=== PATIENT | female | born 1945 | race Caucasian/White ===

== ENCOUNTER → 2017-02-25 | Outpatient (CLI) | payer MEDICARE ==
--- NOTE | 2017-02-25 08:30 | MM ---
Reason for exam: follow-up at short interval from prior study. Last mammogram was performed 7 months ago. History: Patient is postmenopausal and has history of high-risk lesion on a previous biopsy at age 66. Family history of breast cancer in maternal aunt. Benign MG stereo VAD BX LT of the left breast, August 13, 2016. Benign MG stereo VAD BX LT of the left breast, February 09, 2016. Left Breast Aspiration of the left breast, March 03, 2013. High risk right breast needle localzation of the right breast, February 11, 2012. High risk right mammotome panel of the right breast, January 28, 2012. Cyst aspiration of the right breast, December 19, 2000. Took progesterone for 5 years. Physical Findings: Nurse did not find any significant physical abnormalities on exam. MG 3D Diag Mammo W/Cad ANEL Bilateral CC and MLO view(s) were taken. Prior study comparison: August 02, 2016, left breast MG 3d diag mammo w/cad LT. January 30, 2016, left breast MG work up mamm w CAD LT. There are scattered fibroglandular densities. Previous mammotome biopsy in the left breast x 2. No significant new findings when compared with previous films. These results were verbally communicated with the patient and result sheet given to the patient on 02/25/17. ASSESSMENT: Benign, BI-RAD 2 RECOMMENDATION: Routine screening mammogram of both breasts in 1 year.
== END | disposition home or self-care (01) ==
LOC: RADMAMWWP 07:21
PROVIDERS: ATTEND Surgery
DX: R92.8 Other abnormal and inconclusive findings on diagnostic imaging of breast (principal)
CPT/HCPCS: G0204; G0279

== ENCOUNTER → 2017-03-25 | Outpatient (CLI) | payer MEDICARE ==
--- NOTE | 2017-03-25 13:08 | BD ---
EXAMINATION TYPE: MG DEXA axial skeleton. DATE OF EXAM: 03/25/2017 10:59 AM COMPARISON: 01.07.2014 DEXA bone scan CLINICAL HISTORY: M19.90 UNSPECIFIED OSTEOARTHRITIS, Height: 62 Weight: 178 FRAX RISK QUESTIONS: Alcohol (3 or more units per day): NO Family History (Parent hip fracture): NO Glucocorticoids (More than 3mos): NO (Ex: prednisone, prednisolone, methylprednisolone, dexamethasone, and hydrocortisone). History of Fracture in Adulthood: NO Secondary Osteoporosis: NO 1. Type 1 Diabetes: NO 2. Hyperthyroidism: NO 3. Menopause before 45: YES 4. Malnutrition: NO 5. Chronic liver disease: NO Rheumatoid Arthritis: NO Current Tobacco Use: NO RISK FACTORS HISTORY OF: Other Fractures since Age 51: BOTH ANKLES When: > 51 YRS OLD Family History of Osteoporosis: YES, HER MATERNAL AUNT Drink Alcohol: RARELY Active: YES Diet low in dairy products/other sources of calcium: NO Postmenopausal woman: MID 40'S Lost more than 2 inches in height since high school: NO Adrenal Insufficiency: NO MEDICATIONS: Prednisone or other steroids: STEROIDS ORALLY ONLY WITH ILLNESS Additional Medications: BP MEDS, Additional History: RT TOTAL KNEE REPLACEMENT EXAM MEASUREMENTS: Bone mineral densitometry was performed using the [employer]. Bone mineral density as measured about the Lumbar spine is: ----- L1-L4(G/cm2): 1.426 T Score Values are as follows: ----- L1: 1.2 ----- L2: 2.4 ----- L3: 2.8 ----- L4: 1.6 ----- L1-L4: 2.1 Bone mineral density has: Decreased -1.5% since study of: 01.03.2014 Bone mineral density about the R hip (g/cm2): 0.748 Bone mineral density about the L hip (g/cm2): 0.828 T Score values are as follows: -----R Neck: -1.7 -----L Neck: -0.8 -----R Intertrochanter: -2.5 -----L Intertrochanter: -1.8 Bone mineral density has: Decreased -13.8% since study of: 01.07.2014 FRAX %'S: 15.7% CHANCE OF MAJOR OSTEOPOROTIC FX AND 2.4% FOR A HIP FX.....PROBABILITY OF FX IN 10 YRS TIME IMPRESSION: Osteopenia (T Score between -2.5 and -1 as noted by T score values overall in the bilateral hips. Bon e density is diminished from prior exam particularly at hip level. There is now slightly increased r isk of fracture and the patient may be considered for treatment. Re-Screen 1-2 years. NOTE: T-SCORE=SD OF THE YOUNG ADULT MEAN.
== END | disposition home or self-care (01) ==
LOC: RADBDWWP 10:24
PROVIDERS: ATTEND Family Medicine
DX: M85.80 Other specified disorders of bone density and structure, unspecified site (principal)
CPT/HCPCS: 77080

== ENCOUNTER → 2017-03-25 | Outpatient (CLI) | payer MEDICARE ==
--- NOTE | 2017-03-25 14:30 | XR ---
EXAMINATION TYPE: XR Hip Bilateral Complete DATE OF EXAM: 03/25/2017 11:27 AM CLINICAL HISTORY: Bilateral hip pain per order. Arthritic pain per patient. TECHNIQUE: AP and frogleg views of the bilateral hips are obtained. COMPARISON: None. FINDINGS: Osseous structures are demineralized which is noted to lower radiographic sensitivity. The re is no acute fracture/dislocation evident in hilar hip. The joint space in the bilateral hips appe ars within normal limits. There is spurring at greater trochanter levels bilaterally, right greater t mckeon left The overlying soft tissue appears unremarkable bilaterally. IMPRESSION: There is greater trochanteric spurring bilaterally, right greater than left.
--- NOTE | 2017-03-25 14:33 | XR ---
EXAMINATION TYPE: XR lumbosacral spine min 4V DATE OF EXAM: 03/25/2017 11:27 AM CLINICAL HISTORY: Arthritic low back pain for a few weeks. TECHNIQUE: Frontal, lateral, and oblique images of the lumbar spine are obtained. COMPARISON: None FINDINGS: There are 6 lumbar type vertebral bodies identified. The lumbar spine shows grade 1 anter olisthesis of L5 on L6 and more prominent grade 1 retrolisthesis of L2 on L3 and L3 on L4. Vertebral body heights are within normal limits. There is moderate disc space narrowing and moderate to severe spurring at L1-L2 level and L2-L3 level. There is moderate to severe disc space narrowing L3-L4 level . There is moderate disc space narrowing at L6 S1 level. Multilevel facet arthropathy most pronounced in the mid to lower lumbar spine is present. The oblique images appear within normal limits. Cholec ystectomy clips are seen in the overlying soft tissue on lateral view. Some ill-defined calcification epigastric region is of uncertain etiology, not seen on frontal view. IMPRESSION: Multilevel spondylolisthesis and degenerative changes as detailed above.
== END | disposition home or self-care (01) ==
LOC: RADXRMAIN 11:03
PROVIDERS: ATTEND Family Medicine
DX: M43.16 Spondylolisthesis, lumbar region (principal); M47.816 Spondylosis without myelopathy or radiculopathy, lumbar region; M76.891 Other specified enthesopathies of right lower limb, excluding foot; M76.892 Other specified enthesopathies of left lower limb, excluding foot
CPT/HCPCS: 72110; 73521; 77080

== ENCOUNTER → 2017-05-31 | Outpatient (CLI) | payer MEDICARE ==
[2017-05-31 08:45] LABS: Blood Urea Nitrogen 19 mg/dL (7-17); Non-African American GFR(MDRD) 55 (>60 ml/min/1.73 sqM)
--- NOTE | 2017-05-31 12:25 | CT ---
EXAMINATION TYPE: CT abdomen pelvis wo/w con DATE OF EXAM: 05/31/2017 COMPARISON: NONE INDICATION: Enlarged lymph nodes DLP: 1563.40 mGycm, Automated exposure control for dose reduction was used. CONTRAST: 100 ml mL of Omnipaque 300. Study performed with Oral Contrast TECHNIQUE: Axial images were obtained from above the diaphragm to the pubic rami in the axial plane a t 5 mm thick sections. Reconstructed images are reviewed on the computer in the coronal plane. FINDINGS: Limited CT sections are obtained the lung bases. The lung bases are clear. CT ABDOMEN: Liver: Normal Spleen: Normal Pancreas: Normal Adrenal glands: The adrenal glands are normal. Gallbladder: Surgically absent Kidneys: No masses are evident. No hydronephrosis is present. There is a hypodensity within the pos terior mid left kidney a complex cyst may be present measuring 1.2 cm. Series 6 image 43. Tiny cortic al renal cysts on the right mid kidney. Extrarenal pelvis is present on the right. There is a small c yst on the inferior pole right kidney measuring 0.9 cm. Delayed images were obtained through the [employer] neys. Aorta: Vascular calcification is within the aorta. Inferior vena cava: Normal. Lymphadenopathy: There are enlarged periaortic lymph nodes at the level of the renal arteries. The la rgest measures 2.8 cm AP with a 1.4 cm lymph node anterior. Smaller periaortic and retrocaval lymph n odes are present. There is periaortic soft tissue thickening with adjacent stranding in the retroperi toneal region. This extends into the left iliac chain region towards the left inguinal region. Enlarg ed confluent adenopathy appears to be in the left inguinal region measuring 3.5 x 4.2 cm. Smaller enh ancing lymphadenopathy appears to be in the right inguinal region. There is an enlarged retrocaval ly mph node measuring 1.[address] PELVIS: Loops of bowel within the abdomen and pelvis are normal. There are loops of bowel which are incom pletely distended or lack oral contrast limiting their evaluation. Appendix: Normal as visualized. Urinary bladder: Decompressed with limited evaluation Genitourinary structures: Uterus appears normal. Adnexal regions are clear. Minimal fluid posterior t o the uterus may be present. Osseous structures: No suspicious lytic or sclerotic lesions. Punctate sclerotic areas are within the femoral heads compatible with bone islands. Facet degenerative change and hypertrophy is present wit hin the lower lumbar spine. IMPRESSIONS: 1. Matted adenopathy enlarged adenopathy extending from the renal artery and vein level through the iliac chain region on the left with inguinal adenopathy most notably on the left. Additional adenopat hy which appears suspicious although not as enlarged as at the right inguinal region, retrocaval padilla on and portal region. Differential diagnosis should include but is not limited to, lymphoma. Addition al workup is recommended.
== END ==
LOC: RADCTMAIN 08:01
PROVIDERS: ATTEND Family Medicine
DX: R59.9 Enlarged lymph nodes, unspecified (principal)
CPT/HCPCS: 82565; 84520; 74178; 36415; Q9967

== ENCOUNTER → 2017-10-07 | Outpatient (CLI) | payer MEDICARE ==
--- NOTE | 2017-10-07 15:41 | CT ---
EXAMINATION TYPE: CT ChestAbdPelvis wo con DATE OF EXAM: 10/07/2017 COMPARISON: 05/31/2017 HISTORY: Lymphadenopathy CT DLP: 736.9 mGycm. Automated Exposure Control for Dose Reduction was Utilized. TECHNIQUE: CT scan of the thorax, abdomen and pelvis is performed without IV contrast. FINDINGS: LUNGS: PET/CT groundglass opacities are seen within the anterior right upper lobe such as on series 4 image 23 and lingula such as on series 4 image 26 and in a perifissural distribution as well as in t he dependent lower lungs. More focal area seen within the posterior basilar segment of the right lowe r lobe measuring rThe 1.5 cm. Pleural parenchymal scarring is noted within the left lung base. Findin gs are favored to represent multifocal subsegmental atelectasis although infectious or inflammatory e tiologies are also possible. There is no pulmonary nodule or mass is identified. There is no pleural effusion or pneumothorax seen . The tracheobronchial tree is patent. MEDIASTINUM: Mediastinal adenopathy and supraclavicular adenopathy are also seen with the largest sup raclavicular node on the left measuring 1.1 cm in short axis and paratracheal lymph nodes measure up to 1.2 cm in short axis. Subcarinal adenopathy is also seen measuring up to 1.6 cm in short axis. Hil ar adenopathy is difficult to evaluate without intravenous contrast. No pericardial effusion is seen . OTHER: Axillary adenopathy is greater on the left than right with the largest lymph nodes measuring 1 .3 cm in short axis and 1.8 cm in short axis. LIVER/GB: Unenhanced liver is of normal morphology. Gallbladder is surgically absent. PANCREAS: No significant abnormality is seen. SPLEEN: The spleen is nonenlarged measuring 10.8 cm in craniocaudal dimension. ADRENALS: No significant abnormality is seen. KIDNEYS: Exophytic 1.1 cm right lower pole renal cyst is present. Otherwise the unenhanced kidneys ar e unremarkable. The previously seen complex left renal lesion on the exam of 05/31/2017 is not well-de fined on today's examination without intravenous contrast. BOWEL: There is a small hiatal hernia GENITAL ORGANS: No gross abnormality seen. LYMPH NODES: Extensive adenopathy is seen throughout the abdomen and pelvis with the largest lymph no josé luis in the superficial inguinal region on the left measuring up to 5.6 x 3.5 cm 4.6 x 3.3 cm. Left pe lvic sidewall adenopathy represents confluence of internal and external iliac chain lymph nodes and m easures 4.2 x 10.1 cm in transverse by anterior posterior dimension this is enlarged from the prior a s it previously measured approximately 3.4 x 9.6 cm. Extensive periaortic and central mesenteric yris opathy is also seen, again enlarged from the prior with a conglomeration of periaortic lymph nodes on series 3 image 71 measuring 5.3 x 2.2 cm and previously measuring 4.8 x 2.0 cm. Peripancreatic and p ortacaval adenopathy is also present. OSSEOUS STRUCTURES: Multilevel degenerative changes of the thoracolumbar spine are moderate in degree with mild retrolisthesis of L1-L2 and L2 on L3. Probable bone islands are seen a sclerotic foci with in the femurs. OTHER: Abdominal aorta is of normal course and caliber with mild calcific atheromatous changes. IMPRESSION: Adenopathy within the axilla, left greater than right, supraclavicular region, mediastinu m, peripancreatic, Central mesenteric, periaortic, left pelvic sidewall, and superficial inguinal reg ions with the largest nodes in the left superficial inguinal region. In comparison to the prior exam of 05/31/2017 there is increasing size of all of the abdominal pelvic lymph nodes. Again lymphoma halle uld be a primary diagnostic consideration. The superficial left inguinal lymph nodes are amenable to percutaneous biopsy if clinically warranted. No splenic enlargement or current evidence of visceral i nvolvement in this unenhanced CT.
== END ==
LOC: RADCTMAIN 08:31
PROVIDERS: ATTEND Internal Medicine Hematology & Oncology
DX: R59.0 Localized enlarged lymph nodes (principal)
CPT/HCPCS: 36415; 71250; 74176; 82565; 84520

== ENCOUNTER → 2017-10-16 | Outpatient (CLI) | payer MEDICARE ==
--- NOTE | 2017-10-16 14:19 | US ---
EXAMINATION TYPE: US kidneys/renal and bladder DATE OF EXAM: 10/16/2017 COMPARISON: CT chest abdomen and pelvis October 07, 2017. CT abdomen May 31, 2017 CLINICAL HISTORY: N13.[address], known right renal cyst EXAM MEASUREMENTS: Right Kidney: 7.4 x 3.8 x 4.4 cm Left Kidney: 8.7 x4.1 x 4.7 cm Right Kidney: smaller in size,1.5cm inferior exophytic cyst seen Left Kidney: smaller in size, possible mild renal fullness, no obvious hydronephrosis Bladder: wnl Bilateral Jets seen: no Exam is suboptimal secondary to patient's body habitus. There is no evidence for hydronephrosis at th is point in time. No nephrolithiasis is seen. A 1.1 cm exophytic simple appearing cyst lower pole le pk right kidney is redemonstrated not significantly changed from recent CTs. The urinary bladder is anechoic. Bilateral ureteral jets are not seen. IMPRESSION: No hydronephrosis is evident bilaterally. No significant change from prior CTs.
== END | disposition home or self-care (01) ==
LOC: RADUSWWP 13:13
PROVIDERS: ATTEND Internal Medicine Hematology & Oncology
DX: N13.30 Unspecified hydronephrosis (principal)
CPT/HCPCS: 76770

== ENCOUNTER → 2018-01-01 | Outpatient (CLI) | payer MEDICARE ==
[2018-01-01 10:57] LABS: Blood Urea Nitrogen 17 mg/dL (7-17)
--- NOTE | 2018-01-01 13:54 | CT ---
EXAMINATION TYPE: CT ChestAbdPelvis w con DATE OF EXAM: 01/01/2018 COMPARISON: CT Chest Abdomen Pelvis With October 07, [address] abdomen and pelvis study May 31, 2017 HISTORY: Non-Hodgkin's Lymphoma progress study after chemotherapy beginning in October. Recently nelia gnosed in June 2017. CT DLP: 2019 mGycm. Automated Exposure Control for Dose Reduction was Utilized. CONTRAST: CT scan of the thorax, abdomen and pelvis is performed with oral and with IV Contrast, patient inject ed with 100 ml mL of Omnipaque 300. FINDINGS: LUNGS: There is stable bibasilar in the anterior right middle lobe linear scarring. There is no suspi cious new parenchymal nodule or mass. No pleural effusion or pneumothorax is seen. Tracheobronchial t ree is patent. MEDIASTINUM: There are no greater than 1 cm hilar or mediastinal lymph nodes. No cardiomegaly or pe ricardial effusion is seen. OTHER: No suspicious axillary adenopathy is seen on current study with particular attention to left a xilla. LIVER/GB: Cholecystectomy clips are redemonstrated. PANCREAS: Stable calcification posterior to the splenic vein SMV confluence axial image 55. No suspic ious adenopathy remains present at this level. SPLEEN: No significant abnormality is seen. ADRENALS: No significant abnormality is seen. KIDNEYS: Subcentimeter low dense lesion lower pole level left kidney series 7 image 42 is too small t o further characterize but presumed benign. BOWEL: Oral contrast does not reach colonic level. There is no suspicious small or large bowel dilata tion. Normal-appearing appendix is seen from cecum. GENITAL ORGANS: No gross abnormality seen. LYMPH NODES: There is mild to moderate haziness or mesenteric fat stranding through the mid to lower abdomen extending to upper pelvis. Left groin adenopathy is redemonstrated but improved measuring 2.6 x 1.2 cm on axial image 115 versus 5.6 x 3.5 cm most recent study axial image 115. Left inferior groin lymph node is redemonstrated imp roved measuring 1.8 x 1.2 cm axial image 124 versus 4.6 x 3.3 cm on axial image 125. Confluent left i liac chain adenopathy near axial image 102 is improved, there is some encasement of iliac vessels red emonstrated. There is abnormal presacral confluent adenopathy redemonstrated near axial image 89 impr mike from prior difficult to accurately measure. Lower retroperitoneal adenopathy is improved also co nfluent encasing aorta axial image 78 versus prior study image 82, abnormal adenopathy extends to lev el of renal vessels with improvement identified. OSSEOUS STRUCTURES: Moderate to severe multilevel spurring throughout the thoracolumbar spine is pres ent. There is grade 1 retrolisthesis of L2 on L3 and L1 on L2. There is multilevel facet arthropathy in the lumbar spine. OTHER: No significant additional abnormality is seen. IMPRESSION: Positive response to treatment with improving adenopathy throughout the thorax abdomen an d pelvis noted as detailed above.
== END | disposition home or self-care (01) ==
LOC: RADCTMAIN 10:04
PROVIDERS: ATTEND Internal Medicine Hematology & Oncology
DX: C82.08 Follicular lymphoma grade I, lymph nodes of multiple sites (principal); Z88.0 Allergy status to penicillin; Z88.1 Allergy status to other antibiotic agents
CPT/HCPCS: 82565; 84520; 71260; 74177; 36415; Q9967

== ENCOUNTER → 2018-04-01 | Outpatient (CLI) | payer MEDICARE ==
--- NOTE | 2018-04-03 11:12 | MM ---
Reason for exam: screening (asymptomatic). Last mammogram was performed 1 year and 1 month ago. History: Patient is postmenopausal and has history of high-risk lesion on a previous biopsy at age 66. Family history of breast cancer in maternal aunt. Benign MG stereo VAD BX LT of the left breast, August 13, 2016. Benign MG stereo VAD BX LT of the left breast, February 09, 2016. Left Breast Aspiration of the left breast, March 03, 2013. High risk right breast needle localzation of the right breast, February 11, 2012. High risk right mammotome panel of the right breast, January 28, 2012. Cyst aspiration of the right breast, December 19, 2000. Took progesterone for 5 years. Physical Findings: A clinical breast exam by your physician is recommended on an annual basis and results should be correlated with mammographic findings. MG 3D Screening Mammo W/Cad Bilateral CC and MLO view(s) were taken. Prior study comparison: February 25, 2017, bilateral MG 3d diag mammo w/cad ANEL. August 02, 2016, left breast MG 3d diag mammo w/cad LT. There are scattered fibroglandular densities. Previous mammotome biopsy in the left breast. No significant changes when compared with prior studies. ASSESSMENT: Benign, BI-RAD 2 RECOMMENDATION: Routine screening mammogram of both breasts in 1 year.
== END ==
LOC: RADMAMWWP 07:48
PROVIDERS: ATTEND Family Medicine
DX: Z12.31 Encounter for screening mammogram for malignant neoplasm of breast (principal)
CPT/HCPCS: 77063; 77067

== ENCOUNTER → 2018-04-22 | Outpatient (CLI) | payer MEDICARE ==
--- NOTE | 2018-04-22 15:47 | CT ---
EXAMINATION TYPE: CT ChestAbdPelvis w con DATE OF EXAM: 04/22/2018 COMPARISON: 01/01/2018 HISTORY: 72-year-old female f/u lymphoma, observation for metastases. TECHNIQUE: Contiguous axial scanning of the chest, abdomen, and pelvis performed with IV Contrast, pa tient injected with 100 mL of Isovue 300. Delayed images through the kidneys were obtained. Coronal/s agittal reconstructions performed. CT DLP: 1160.9 mGycm Automated exposure control for dose reduction was used. FINDINGS: Chest: Heart upper limits of normal in size without pericardial effusion. Coronary vessel calcifications are present and are a marker for coronary artery disease. Aorta shows mild atherosclerotic calcifications with conventional arch vessel branching anatomy. No recurrent thoracic lymphadenopathy. Evaluation of the lungs show some strandy atelectasis at the right middle lobe and inferior lingula a s well as both posterior lung bases. No consolidation or pleural effusion. ABDOMEN: Small hiatal hernia. No focal liver lesion. Portal venous system is patent. No biliary ductal dilatat ion. Cholecystectomy clips. Adrenal glands, left kidney, spleen, and pancreas appear within normal limits. Subcentimeter exophytic hypodensity lateral lower pole right kidney too small fractured CT characteri zation, unchanged, likely cyst. No dilated small bowel, free fluid, or free air. There has been progressive improvement now with only mild luis mesentery. Oral contrast progressed to the upper ascending colon. There is scattered moderate stool in the trans verse colon with descending and proximal sigmoid diverticulosis. No pericolonic inflammatory change. Left para-aortic lymph nodes above the level of the renal arteries measure 9 mm versus 1.0 cm, previo usly. Confluent left para-aortic lymph nodes below the level of the renal arteries measures 2.3 x 1.7 cm versus 3.5 x 1.5 cm, previously. Additional ill-defined abnormal soft tissue in the retroperitone um to the level of the bifurcation is also decreased. Along the left side of the bifurcation, soft ti ssue measures 3.4 x 2.1 cm versus 3.8 x 2.9 cm, previously. Soft tissue encasement along the left internal and obturator chain persists without significant platt e. Soft tissue thickening along the left external iliac chain decreased now measuring 9 mm versus 1.2 cm, previously. Left inguinal lymph nodes show further improvement measuring 8 mm short axis versus 1.2 cm, previousl y. Pelvis: Bladder urine. Uterus and ovaries are visualized. No abnormal fluid collection in the pelvis. Pelvic lymph nodes as described above. Bones: Mild degenerative changes of the hips. Degenerative changes at the SI joints. Degenerative changes th roughout the spine with grade 1 retrolisthesis at L1-L2 and L2-L3 and grade 1 anterolisthesis at L4-L 5. No osseous destructive process. Endplate spondylosis mid to lower thoracic spine. IMPRESSION: 1. RETROPERITONEAL LYMPH NODES AND ABNORMAL THICKENED SOFT TISSUE WHICH TRACKS DOWN THE LEFT ILIAC CH AIN SHOWS FURTHER IMPROVEMENT COMPARED TO 01/01/2018. 2. RESIDUAL SOFT TISSUE REMAINS (FOR EXAMPLE, TO THE LEFT OF THE AORTIC BIFURCATION MEASURES 3.4 X 2. 1 CM VERSUS 3.8 X 2.9 CM, PREVIOUSLY. THICKENING ALONG THE LEFT EXTERNAL ILIAC CHAIN MEASURES 9 MM VE RSUS 1.2 CM, PREVIOUSLY. LEFT INGUINAL LYMPH NODES HAVE FURTHER DECREASED IN SIZE NOW AT 8 MM VERSUS 1.2 CM, PREVIOUSLY). 3. LEFT COLONIC DIVERTICULOSIS AND SMALL HIATAL HERNIA.
== END | disposition home or self-care (01) ==
LOC: RADCTMAIN 11:53
PROVIDERS: ATTEND Internal Medicine Hematology & Oncology
DX: C82.08 Follicular lymphoma grade I, lymph nodes of multiple sites (principal); K44.9 Diaphragmatic hernia without obstruction or gangrene; K57.30 Diverticulosis of large intestine without perforation or abscess without bleeding
CPT/HCPCS: 82565; 84520; 71260; 74177; 36415; Q9967

== ENCOUNTER → 2018-05-21 | Outpatient (CLI) | payer MEDICARE ==
--- NOTE | 2018-05-21 11:49 | XR ---
EXAMINATION TYPE: XR knee complete RT DATE OF EXAM: 05/21/2018 COMPARISON: 12/14/2015 HISTORY: Pain, fall TECHNIQUE: 3 views right knee FINDINGS: No acute fractures or dislocations are evident. Soft tissues appear within normal limits. V apollo subtle small joint effusion is not excluded. Distal tibial femoral components from a knee prosthesis are evident. No osseous changes are evident f rom the comparison study IMPRESSION: 1. No acute osseous abnormality evident. 2. Subtle joint effusion may be present.
== END | disposition home or self-care (01) ==
LOC: RADXRMAIN 09:27
PROVIDERS: ATTEND Family Medicine
DX: M25.561 Pain in right knee (principal)

== ENCOUNTER → 2018-11-06 | Outpatient (CLI) | payer MEDICARE ==
--- NOTE | 2018-11-06 10:13 | CT ---
EXAMINATION TYPE: CT ChestAbdPelvis w con DATE OF EXAM: 11/06/2018 COMPARISON: 04/22/2018 and 01/01/2018 HISTORY: Follow up scan per patient CT DLP: 728.2 mGycm. Automated Exposure Control for Dose Reduction was Utilized. CONTRAST: CT scan of the thorax, abdomen and pelvis is performed with IV Contrast, patient injected with 100 mL of Isovue 300. FINDINGS: LUNGS: The lungs are grossly clear, there is no concerning parenchymal mass or nodule identified. T here is no pleural effusion or pneumothorax seen. The tracheobronchial tree is patent. MEDIASTINUM: There are no greater than 1 cm hilar or mediastinal lymph nodes. No pericardial effusi on is seen. Mild coronary artery calcifications are present. OTHER: Again there is a small hiatal hernia seen in the posterior mediastinum. There are few newly pr ominent left axillary lymph nodes such as on series 3 image 13 now measuring 8 mm in short axis. Jordon tionally there is an upper outer quadrant right breast asymmetry marked on series 3 image 13 for whic h mammography is recommended. High axillary lymph nodes measure up to 7 mm on the left such as on ser ies 3 image 5. LIVER/GB: No significant abnormality is appreciated. Gallbladder is surgically absent. PANCREAS: No significant abnormality is seen. SPLEEN: No significant abnormality is seen. ADRENALS: No significant abnormality is seen. KIDNEYS: Right lower pole exophytic 9 mm renal cyst is again demonstrated. BOWEL: There is a large amount retained colonic stool, somewhat limiting evaluation of the large nik l in the transverse colon, hepatic flexure and splenic flexure. No dilated large or small bowel is se en. LYMPH NODES: There is redemonstration of haziness of the retroperitoneal fat. Left periaortic lymph n ode measured on the prior exam currently measures approximately 1.6 x 1.0 cm and previously measured approximately 2.3 x 1.6 cm on the prior 04/22/2018. Retroperitoneal density on series 3 image 77 in th e left periaortic region appear similar to the prior with extent inferiorly to measure approximately 3.2 x 1.9 cm as opposed to the prior of 3.4 x 2.1 cm. This continues inferiorly to surround the commo n iliac chains, left greater than right, as well as external iliac chain on the left to a larger degr ee than the internal chain. Left superficial inguinal node also appears similar to the prior measurin g 8 mm in short axis on image 113. Similar-appearing mid mesenteric lymph node on series 3 image 56 m easures 7 mm in short axis. Probable calcified lymph node is seen near the portal splenic confluence on series 3 image 53. OSSEOUS STRUCTURES: Sclerotic foci are seen within both femoral heads. Moderate multilevel degenerati ve changes of the spine are noted. IMPRESSION: 1. Slight decrease in size of the retroperitoneal adenopathy and findings also suggesting retroperito yunior fibrosis without progression from the prior. 2. New prominent left axillary lymph nodes (measuring up to 8 mm in short axis) in comparison to the prior and right upper outer quadrant mammographic asymmetry. Bilateral diagnostic mammogram and left axillary ultrasound are recommended for further evaluation.
== END | disposition home or self-care (01) ==
LOC: RADCTMAIN 07:44
PROVIDERS: ATTEND Internal Medicine Hematology & Oncology
DX: C82.08 Follicular lymphoma grade I, lymph nodes of multiple sites (principal); Z88.0 Allergy status to penicillin; Z88.8 Allergy status to other drugs, medicaments and biological substances
CPT/HCPCS: 82565; 84520; 71260; 74177; 36415; Q9967

== ENCOUNTER → 2018-11-19 | Outpatient (CLI) | payer MEDICARE ==
--- NOTE | 2018-11-20 14:13 | MM ---
Reason for exam: additional evaluation requested from prior study. Last mammogram was performed 8 months ago. History: Patient is postmenopausal, has history of other cancer at age 71, and has history of high-risk lesion on a previous biopsy at age 66. Family history of breast cancer in maternal aunt. Benign MG stereo VAD BX LT of the left breast, August 13, 2016. Benign MG stereo VAD BX LT of the left breast, February 09, 2016. Left Breast Aspiration of the left breast, March 03, 2013. High risk right breast needle localzation of the right breast, February 11, 2012. High risk right mammotome panel of the right breast, January 28, 2012. Cyst aspiration of the right breast, December 19, 2000. Took progesterone for 5 years. Physical Findings: Nurse did not find any significant physical abnormalities on exam. MG 3D Diag Mammo W/Cad ANEL Bilateral CC and MLO view(s) were taken. Prior study comparison: April 01, 2018, bilateral MG 3d screening mammo w/cad. February 25, 2017, bilateral MG 3d diag mammo w/cad ANEL. The breast tissue is heterogeneously dense. This may lower the sensitivity of mammography. Finding #1: Architectural distortion in the right breast consistent with known excisional biopsy upper outer quadrant correlates to CT. Finding #2: There are typically benign dystrophic, round calcifications in both breasts. Previous mammotome biopsy in the left breast x 2. There is no discrete abnormality. These results were verbally communicated with the patient and result sheet given to the patient on 11/19/18. ASSESSMENT: Benign, BI-RAD 2 RECOMMENDATION: Routine screening mammogram of both breasts in 1 year.
--- NOTE | 2018-11-20 14:16 | USB ---
Reason for exam: additional evaluation requested from prior study. History: Patient is postmenopausal, has history of other cancer at age 71, and has history of high-risk lesion on a previous biopsy at age 66. Family history of breast cancer in maternal aunt. Benign MG stereo VAD BX LT of the left breast, August 13, 2016. Benign MG stereo VAD BX LT of the left breast, February 09, 2016. Left Breast Aspiration of the left breast, March 03, 2013. High risk right breast needle localzation of the right breast, February 11, 2012. High risk right mammotome panel of the right breast, January 28, 2012. Cyst aspiration of the right breast, December 19, 2000. Took progesterone for 5 years. US Breast LT Left complete breast ultrasound includes all four quadrants, the retroareolar region and axilla. Finding demonstrates a 2.5 x 0.7 x 1.4cm lymph node at the axilla, appearance with thickened cortex but known lymphoma. These results were verbally communicated with the patient and result sheet given to the patient on 11/19/18. ASSESSMENT: Probably benign, BI-RAD 3 RECOMMENDATION: Clinical management of the left breast. Manage on a clinical basis. Correlate with history to determine if needed repeat.
== END ==
LOC: RADMAMWWP 10:39
PROVIDERS: ATTEND Family Medicine
DX: R92.8 Other abnormal and inconclusive findings on diagnostic imaging of breast (principal)
CPT/HCPCS: 77066; 76641; G0279; 77062

== ENCOUNTER → 2019-04-06 | Outpatient (CLI) | payer MEDICARE ==
--- NOTE | 2019-04-06 13:05 | XR ---
EXAMINATION TYPE: XR knee complete bilateral DATE OF EXAM: 04/06/2019 CLINICAL HISTORY: pain TECHNIQUE: Three views of the right knee are obtained. COMPARISON: None. FINDINGS: There is no acute fracture/dislocation. Moderate degenerative narrowing patellofemoral trevor nt space with spur formation noted. The overlying soft tissue appears unremarkable. IMPRESSION: There is no acute fracture or dislocation.ICD 10 NO FRACTURE, INITIAL EVALUATION EXAMINATION TYPE: XR knee complete bilateral DATE OF EXAM: 04/06/2019 CLINICAL HISTORY: pain TECHNIQUE: Three views of the left knee are obtained. COMPARISON: 05/21/2018 FINDINGS: There is no acute fracture/dislocation. Total knee arthroplasty is in place. The overlying soft tissue appears unremarkable. IMPRESSION: There is no acute fracture or dislocation ICD 10 NO FRACTURE, INITIAL EVALUATION
--- NOTE | 2019-04-06 13:06 | XR ---
EXAMINATION TYPE: XR Hip Bilateral Complete DATE OF EXAM: 04/06/2019 CLINICAL HISTORY: pain TECHNIQUE: AP and frogleg views of the bilateral hips are obtained. COMPARISON: None. FINDINGS: There is no acute fracture/dislocation evident. The joint space appears mildly to modera tely narrowed. The overlying soft tissue appears unremarkable. IMPRESSION: 1. There is no acute fracture or dislocation. ICD 10 NO FRACTURE, INITIAL EVALUATION
== END | disposition home or self-care (01) ==
LOC: RADXRMAIN 12:29
PROVIDERS: ATTEND Family Medicine
DX: M25.551 Pain in right hip (principal); M25.552 Pain in left hip; M25.561 Pain in right knee; M25.562 Pain in left knee
CPT/HCPCS: 73521

== ENCOUNTER → 2019-05-08 | Outpatient (CLI) | payer MEDICARE ==
--- NOTE | 2019-05-08 13:12 | CT ---
EXAMINATION TYPE: CT ChestAbdPelvis w con DATE OF EXAM: 05/08/2019 COMPARISON: Previous exam 11/06/2018 HISTORY: Lymphoma CT DLP: 1480 mGycm Automated exposure control for dose reduction was used. CONTRAST: CT scan of the chest, abdomen and pelvis is performed with Oral Contrast and with IV Contrast, patien t injected with 100 ml mL of Isovue 300. FINDINGS: LUNGS: The lungs are stable, there is no concerning parenchymal mass or nodule identified. There is no pleural effusion or pneumothorax seen. The tracheobronchial tree is patent. MEDIASTINUM: There are no greater than 1 cm hilar or mediastinal lymph nodes. No pericardial effusi on is seen. AORTA: No significant abnormality is seen. OTHER: There has been interval development of extensive left axillary, subpectoral, supraclavicular adenopathy on the left greater than 10 enlarged nodes are present, larger shows a short axis measurem ent of 3 cm. LIVER/GB: No significant abnormality is appreciated. PANCREAS: No significant abnormality is seen. SPLEEN: No significant abnormality is seen. ADRENALS: No significant abnormality is seen. KIDNEYS: No significant abnormality is seen. REPRODUCTIVE ORGANS: No gross abnormality seen. BOWEL: No significant abnormality is seen. FREE AIR: No Free Air visible. ASCITES: None seen. RETROPERITONEAL ADENOPATHY: Retroperitoneal soft tissue adjacent to the aorta peripherally shows a s imilar appearance. Abnormal soft tissue extends into the left pelvic sidewall region as on prior, grisel e soft tissue in the left groin shows a similar appearance URINARY BLADDER: No significant abnormality is seen. PELVIC ADENOPATHY: None visualized. OSSEOUS STRUCTURES: No significant change is seen. IMPRESSION: Interval extensive development of adenopathy in the left chest as described.
== END ==
LOC: RADCTMAIN 08:41
PROVIDERS: ATTEND Internal Medicine Hematology & Oncology
DX: R59.0 Localized enlarged lymph nodes (principal); C82.08 Follicular lymphoma grade I, lymph nodes of multiple sites; Z88.0 Allergy status to penicillin; Z88.8 Allergy status to other drugs, medicaments and biological substances
CPT/HCPCS: 82565; 84520; 71260; 74177; 36415; Q9967

== ENCOUNTER 2019-05-21 08:55 | Day surgery (SDC) | payer MEDICARE ==
[2019-05-21 09:24] VITALS: RESP 16; TEMP 97.5
[2019-05-21] MEDS ORDERED: ALPRAZolam 0.25 MG TAB PO STA (09:32)
--- NOTE | 2019-05-21 10:29 | P.PCN ---
Date of Procedure: 05/21/19 Preoperative Diagnosis: lymphadenopathy Postoperative Diagnosis: same Procedure(s) Performed: core biopsy Anesthesia: local Estimated Blood Loss (ml): 5 Pathology: other (2x 18 ga cores)
[2019-05-21 11:25] VITALS: BP 110/58; PULSE 71
--- NOTE | 2019-05-21 14:31 | US ---
EXAMINATION TYPE: US biopsy lymph node DATE OF EXAM: 05/21/2019 HISTORY: Left axillary adenopathy . Lymphoma FINDINGS: Maximal barrier technique was utilized. The skin overlying a suitable path to the patient' s left axillary adenopathy was localized with ultrasound and the overlying skin prepped and draped. Ultrasound was utilized with sterile technique. Lidocaine was used for local anesthesia. A skin carlos k was made with a scalpel. An 18-gauge needle was advanced under direct ultrasound guidance and core specimen obtained of the adenopathy, an additional passes made with a 18-gauge needle. Specimens patel bmitted in formalin and on wet Telfa to Pathology. Following the procedure, hemostasis achieved and the patient is discharged in stable condition without complication. IMPRESSION:STATUS POST ULTRASOUND GUIDED CORE BIOPSY OF left axillary adenopathy, PATHOLOGY IS PENDIN G. THIS PROCEDURE IS PERFORMED BY THE UNDERSIGNED.
== END 2019-05-21 10:45 | disposition home or self-care (01) ==
LOC: RADPROMAIN 08:55
PROVIDERS: ATTEND Internal Medicine Hematology & Oncology
DX: C82.04 Follicular lymphoma grade I, lymph nodes of axilla and upper limb (principal); I10 Essential (primary) hypertension; M51.36 Other intervertebral disc degeneration, lumbar region; K21.9 Gastro-esophageal reflux disease without esophagitis; D51.9 Vitamin B12 deficiency anemia, unspecified; Z79.891 Long term (current) use of opiate analgesic; Z79.899 Other long term (current) drug therapy; Z88.0 Allergy status to penicillin; Z96.651 Presence of right artificial knee joint; Z90.49 Acquired absence of other specified parts of digestive tract; Z98.51 Tubal ligation status; Z80.1 Family history of malignant neoplasm of trachea, bronchus and lung
CPT/HCPCS: 38505; 76942; 88305; 88341; 88342

== ENCOUNTER → 2019-10-06 | Outpatient (CLI) | payer MEDICARE ==
[2019-10-06 09:53] LABS: African American GFR (CKD) >90 (>60 ml/min/1.73 sqM); Blood Urea Nitrogen 15 mg/dL (7-17)
--- NOTE | 2019-10-06 12:26 | CT ---
EXAMINATION TYPE: CT ChestAbdPelvis w con DATE OF EXAM: 10/06/2019 COMPARISON: NONE HISTORY: LYMPHOMA CT DLP: 646.3 mGycm. Automated Exposure Control for Dose Reduction was Utilized. CONTRAST: CT scan of the thorax, abdomen and pelvis is performed with IV Contrast, patient injected with 100 mL of Isovue 300. FINDINGS: LUNGS: New 4 mm focal pleural thickening is seen along the left lower lobe on series 4 image 25, poss ibly related to adjacent atelectasis with small multifocal areas just inferior to this such as on kaylene ge 30 and 29. Areas are also seen on the right that are similar on image 32, again likely atelectasis . Minimal multifocal subsegmental atelectasis is seen at the lung bases. No new suspicious nodule or mass. Otherwise the lungs are grossly clear, there is no concerning parenchymal mass or nodule identi fied. There is no pleural effusion or pneumothorax seen. The tracheobronchial tree is patent. MEDIASTINUM: There are no greater than 1 cm hilar or mediastinal lymph nodes. No pericardial effusi on is seen. Mild coronary calcifications. OTHER: There is been interval marked response to treatment. The previously seen left axillary, suprac lavicular, and subpectoral adenopathy has resolved. On the prior it was mentioned that there were gre ater than 10 enlarged nodes with the largest measuring up to 3 cm in short axis, the current largest now measures 0.5 cm in short axis (within normal limits). LIVER/GB: No significant abnormality is appreciated. Gallbladder surgically absent. Cholecystectomy c lips are seen. No intrahepatic biliary ductal dilatation. PANCREAS: Mild debris pancreatic parenchymal atrophy. No ductal dilatation. SPLEEN: No splenomegaly. Spleen size is stable from the prior. ADRENALS: No significant abnormality is seen. KIDNEYS: There are bilateral extrarenal pelvises sees. Exophytic right lower pole 1.0 cm cyst is pres ent. Punctate 2 to 3 mm too small to accurately characterize left superior pole lesion is seen on kaylene ge 61. Otherwise kidneys enhance symmetrically. 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 BOWEL: Moderate fecal stasis is seen in the rectum dilating the rectum up to 7.4 cm. No obstruction o r proximal bowel dilatation. Sigmoid colon is redundant. LYMPH NODES: No greater than 1cm abdominal or pelvic lymph nodes are appreciated. 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 This does surround the left distal ureter however there is no left-sided hydronephrosis at th is time. OSSEOUS STRUCTURES: Multilevel malalignment of the thoracolumbar spine is also likely degenerative. T here is grade 1 anterolisthesis of L4 and L5, retrolisthesis of L2 on L3 and of L1 on L2 as well as g rade 1 anterolisthesis of T11 on T12. Overall moderate degenerative changes of the thoracolumbar spin e. No suspicious osseous lesion. IMPRESSION: 1. Marked response to treatment. There is resolution of the previously seen left axillary, left subpe ctoral, and left supraclavicular adenopathy (biopsy proven lymphoma). The previously seen lymph nodes measured up to 3 cm in short axis and now measure up to 0.5 cm in short axis (within normal limits). No new adenopathy in the chest, abdomen, or pelvis. 2. Moderate degree colonic fecal stasis with dilated rectum up to 7.4 cm. No proximal obstruction. 3. New very small areas of focal pleural thickening bilaterally are likely on the basis of adjacent a telectasis.
== END | disposition home or self-care (01) ==
LOC: RADCTMAIN 08:52
PROVIDERS: ATTEND Internal Medicine Hematology & Oncology
DX: K59.8 Other specified functional intestinal disorders (principal); K59.39 Other megacolon; J92.9 Pleural plaque without asbestos; R59.9 Enlarged lymph nodes, unspecified; C82.08 Follicular lymphoma grade I, lymph nodes of multiple sites; Z88.0 Allergy status to penicillin; Z88.1 Allergy status to other antibiotic agents
CPT/HCPCS: 82565; 84520; 71260; 74177; 36415; Q9967

== ENCOUNTER → 2019-11-05 | Outpatient (CLI) | payer MEDICARE ==
[~2019-11-05] MED LIST: ACETAMINOPHEN TAB 500 MG TAB PO NR; FAMOTIDINE 20 MG/2 ML VIAL IV NR; RITUXIMAB IV NR; SODIUM CHLORIDE 0.9% 500 ML 500 ML in EMPTY BAG 1 BAG IV PRN; SODIUM CHLORIDE 0.9% IV NR; diphenhydrAMINE 50 MG/ML 1 ML VIAL IVP NR; methylPREDNISolone SOD SUCCI 125 MG/2 ML VIAL IV NR
[2019-11-05 08:29] VITALS: TEMP 97.7
[2019-11-05 08:49] LABS: Basophils # (A) 0.1 k/uL (0-0.2); Basophils % (A) 2 %; Eosinophils # (A) 0.1 k/uL (0-0.7); Eosinophils % (A) 3 %; HCT 37.7 % (34.0-46.0); HGB 12.8 gm/dL (11.4-16.0); Lymphocytes # (A) 0.4 k/uL (1.0-4.8); Lymphocytes % (A) 16 %; MCH 31.5 pg (25.0-35.0); MCV 92.7 fL (80.0-100.0); Mean Platelet Volume 5.6; Monocytes # (A) 0.2 k/uL (0-1.0); Monocytes % (A) 8 %; Neutrophils # (A) 1.8 k/uL (1.3-7.7); Neutrophils % (A) 69 %; Platelet Count 217 k/uL (150-450); RBC 4.07 m/uL (3.80-5.40); RDW 14.3 % (11.5-15.5); WBC 2.7 k/uL (3.8-10.6)
[2019-11-05 11:21] VITALS: BP 122/56; PULSE 70; RESP 18
== END | disposition home or self-care (01) ==
LOC: PROCWHC3 08:03
PROVIDERS: ATTEND Internal Medicine Hematology & Oncology
DX: Z51.11 Encounter for antineoplastic chemotherapy (principal); C82.08 Follicular lymphoma grade I, lymph nodes of multiple sites
CPT/HCPCS: 85025; 96375; 96413; 96415; 36415; J1200; J2930; J9312

== ENCOUNTER → 2019-12-31 | Outpatient (CLI) | payer MEDICARE ==
[2019-12-31 08:12] VITALS: RESP 18; TEMP 97.5
[2019-12-31 08:35] LABS: Basophils # (A) 0.1 k/uL (0-0.2); Basophils % (A) 3 %; Eosinophils # (A) 0.1 k/uL (0-0.7); Eosinophils % (A) 2 %; HCT 35.6 % (34.0-46.0); HGB 11.9 gm/dL (11.4-16.0); Lymphocytes # (A) 0.5 k/uL (1.0-4.8); Lymphocytes % (A) 23 %; MCH 31.5 pg (25.0-35.0); MCHC 33.5 g/dL (31.0-37.0); Mean Platelet Volume 7.2; Monocytes # (A) 0.2 k/uL (0-1.0); Monocytes % (A) 9 %; Neutrophils # (A) 1.2 k/uL (1.3-7.7); Neutrophils % (A) 58 %; Platelet Count 236 k/uL (150-450); RBC 3.79 m/uL (3.80-5.40); RDW 13.5 % (11.5-15.5); WBC 2.1 k/uL (3.8-10.6)
[2019-12-31 11:08] VITALS: BP 92/62; PULSE 88
== END | disposition home or self-care (01) ==
LOC: PROCWHC3 08:03
PROVIDERS: ATTEND Internal Medicine Hematology & Oncology
DX: Z51.11 Encounter for antineoplastic chemotherapy (principal); C82.08 Follicular lymphoma grade I, lymph nodes of multiple sites
CPT/HCPCS: 85025; 96375; 96413; 96415; 36415; J1200; J2930; J9312

== ENCOUNTER → 2020-01-04 | Outpatient (CLI) | payer MEDICARE ==
--- NOTE | 2020-01-05 10:27 | ECHOF ---
Referral Reason:R07.89 atypical chest pain MEASUREMENTS -------- HEIGHT: 157.5 cm WEIGHT: 61.7 kg BP: 158/66 RVIDd: 2.8 cm (< 3.3) IVSd: 1.1 cm (0.6 - 1.1) LVIDd: 3.6 cm (3.9 - 5.3) LVPWd: 1.1 cm (0.6 - 1.1) IVSs: 1.3 cm LVIDs: 2.0 cm LVPWs: 1.5 cm LA Diam: 2.6 cm (2.7 - 3.8) LAESV Index (A-L): 23.92 ml/m Ao Diam: 3.2 cm (2.0 - 3.7) AV Cusp: 2.0 cm (1.5 - 2.6) MV EXCURSION: 13.666 mm (> 18.000) MV EF SLOPE: 132 mm/s (70 - 150) EPSS: 0.3 cm MV E Parminder: 1.35 m/s MV DecT: 131 ms MV A Parminder: 0.86 m/s MV E/A Ratio: 1.57 FINDINGS -------- Resting tachycardia (HR>100bpm). This was a technically adequate study. The left ventricular size is normal. There is borderline concentric left ventricular hypertrophy. Overall left ventricular systolic function is normal with, an EF between 60 - 65 %. The right ventricle is normal in size. Normal LA size by volume 22+/-6 ml/m2. The right atrium is normal in size. Interatrial and interventricular septum intact. The aortic valve is trileaflet and appears structurally normal. The mitral valve is normal. The tricuspid valve appears structurally normal. The pulmonic valve was not well visualized. The aortic root size is normal. IVC Not well visulized. There is no pericardial effusion. CONCLUSIONS -------- 1. Resting tachycardia (HR>100bpm). 2. This was a technically adequate study. 3. The left ventricular size is normal. 4. There is borderline concentric left ventricular hypertrophy. 5. Overall left ventricular systolic function is normal with, an EF between 60 - 65 %. 6. The right ventricle is normal in size. 7. Normal LA size by volume 22+/-6 ml/m2. 8. The right atrium is normal in size. 9. Interatrial and interventricular septum intact. 10. The aortic valve is trileaflet and appears structurally normal. 11. The mitral valve is normal. 12. The tricuspid valve appears structurally normal. 13. The pulmonic valve was not well visualized. 14. The aortic root size is normal. 15. IVC Not well visulized. 16. There is no pericardial effusion. SAMPLE GRADER: Aliya Wray RDCS
== END | disposition home or self-care (01) ==
LOC: RADECHMAIN 15:25
PROVIDERS: ATTEND Family Medicine
DX: R00.0 Tachycardia, unspecified (principal)
CPT/HCPCS: 93306

== ENCOUNTER → 2020-02-10 | Outpatient (CLI) | payer MEDICARE | END | disposition home or self-care (01) | LOC: LABWHC1 14:29 | PROVIDERS: ATTEND Family Medicine | DX: R60.0 Localized edema (principal) | CPT/HCPCS: 36415; 85379 ==

== ENCOUNTER → 2020-02-16 | Outpatient (CLI) | payer MEDICARE ==
--- NOTE | 2020-02-16 13:30 | US ---
EXAMINATION TYPE: US venous doppler duplex LE DATE OF EXAM: 02/16/2020 1:17 PM COMPARISON: NONE CLINICAL HISTORY: R79.1 Postive D Dimer. Bilateral leg edema SIDE PERFORMED: Bilateral TECHNIQUE: The lower extremity deep venous system is examined utilizing real time linear array sonog stephanie with graded compression, doppler sonography and color-flow sonography. VESSELS IMAGED: External Iliac Vein (EIV) Common Femoral Vein Deep Femoral Vein Greater Saphenous Vein * Femoral Vein Popliteal Vein Small Saphenous Vein * Proximal Calf Veins (* superficial vessels) Patient has personal history of non Hodgkin's lymphoma. Right Leg: Negative for DVT Left Leg: Negative for DVT Incidental note is made of abnormal node left groin measures 1.5 x 0.7 cm. Loss of normal fatty hilum . History of lymphoma noted. Grayscale, color doppler, spectral doppler imaging performed of the deep veins of the bilateral lower extremities. There is normal flow, compressibility, vascular waveforms. IMPRESSION: No ultrasound evidence for acute DVT in either lower extremity.
== END | disposition home or self-care (01) ==
LOC: RADUSWWP 12:53
PROVIDERS: ATTEND Family Medicine
DX: R79.1 Abnormal coagulation profile (principal); Z88.0 Allergy status to penicillin
CPT/HCPCS: 93970

== ENCOUNTER → 2020-02-23 | Outpatient (CLI) | payer MEDICARE ==
--- NOTE | 2020-02-23 12:44 | CT ---
EXAMINATION TYPE: CT ChestAbdPelvis w con DATE OF EXAM: 02/23/2020 COMPARISON: 10/06/2019 HISTORY: Lymphoma CT DLP: 614.30 mGycm CONTRAST: CT scan of the chest, abdomen and pelvis is performed with Oral Contrast and with IV Contrast, patien t injected with 80 mL of I[address]vue 300. [address] Chest: LUNGS: The lungs are clear and free of infiltrate or atelectasis. No pulmonary nodule or mass is det ected. No pleural effusion or CT evidence of interstitial lung disease. MEDIASTINUM: Thoracic aorta is of normal caliber. The heart is not enlarged. No evidence for media stinal mass or adenopathy. HILAR STRUCTURES: No evidence for mass. No hilar adenopathy is appreciated. OTHER: No evidence for adenopathy within the chest or axillary regions. Overall appearance is stable. CONTRAST CT ABDOMEN AND PELVIS FINDINGS: LIVER/GB: The gallbladder surgically absent. No space occupying hepatic lesion. Biliary tree is of no rmal caliber. PANCREAS: No inflammation. No distinct mass. SPLEEN: No splenic enlargement. No lesion seen. ADRENALS: No nodule. No thickening. KIDNEYS/BLADDER: No hydronephrosis. No nephrolithiasis. No distinct renal mass. BOWEL: Normal appendix. Normal bowel caliber. No inflammation. GENITAL ORGANS: No gross abnormality. 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 This does surround the left distal ureter however there is no left- sided hydronephrosis at t his time. AORTA: No significant abnormality. OSSEOUS STRUCTURES: No significant abnormality is seen. OTHER: No significant additional abnormality is seen. IMPRESSION: 1. No evidence for recurrent adenopathy. Overall stable appearance of the chest, abdomen and pelvis.
== END | disposition home or self-care (01) ==
LOC: RADCTMAIN 10:06
PROVIDERS: ATTEND Internal Medicine Hematology & Oncology
DX: C82.08 Follicular lymphoma grade I, lymph nodes of multiple sites (principal); Z88.0 Allergy status to penicillin; Z91.048 Other nonmedicinal substance allergy status
CPT/HCPCS: 82565; 84520; 71260; 74177; 36415; Q9967 ×2

== ENCOUNTER → 2020-02-25 | Outpatient (CLI) | payer MEDICARE ==
[~2020-02-25] MED LIST changes: -ACETAMINOPHEN TAB 500 MG TAB PO NR; +ACETAMINOPHEN TAB 500 MG TAB PO ONE; -FAMOTIDINE 20 MG/2 ML VIAL IV NR; +FAMOTIDINE 20 MG/2 ML VIAL IV ONE; -diphenhydrAMINE 50 MG/ML 1 ML VIAL IVP NR; +diphenhydrAMINE 50 MG/ML 1 ML VIAL IVP ONE; -methylPREDNISolone SOD SUCCI 125 MG/2 ML VIAL IV NR; +methylPREDNISolone SOD SUCCI 125 MG/2 ML VIAL IV ONE
[2020-02-25 08:03] VITALS: RESP 16; TEMP 97.5
[2020-02-25 08:15] LABS: HCT 33.6 % (34.0-46.0); HGB 11.9 gm/dL (11.4-16.0); MCH 33.2 pg (25.0-35.0); MCHC 35.6 g/dL (31.0-37.0); MCV 93.2 fL (80.0-100.0); Mean Platelet Volume 8.8; Platelet Count 184 k/uL (150-450); RDW 13.2 % (11.5-15.5)
[2020-02-25 08:34] LABS: Eosinophils # (M) 0.42 k/uL (0-0.7); Lymphocytes # (M) 0.52 k/uL (1.0-4.8); Monocytes # (M) 0.12 k/uL (0-1.0); Neutrophils # (M) 0.94 k/uL (1.3-7.7); Neutrophils % (M) 47 %; Nucleated Red Blood Cells 0 /100 WBC (0-0); Total Cells Counted 100
[2020-02-25 10:58] VITALS: BP 101/67; PULSE 64
== END ==
LOC: PROCWHC3 07:53
PROVIDERS: ATTEND Internal Medicine Hematology & Oncology
DX: Z51.11 Encounter for antineoplastic chemotherapy (principal); C82.08 Follicular lymphoma grade I, lymph nodes of multiple sites
CPT/HCPCS: 85025; 96375; 96413; 96415; 36415; J1200; J2930; J9312

== ENCOUNTER → 2020-08-16 | Outpatient (CLI) | payer MEDICARE ==
--- NOTE | 2020-08-17 21:12 | CT ---
EXAMINATION TYPE: CT ChestAbdPelvis w con DATE OF EXAM: 08/16/2020 COMPARISON: CT chest abdomen pelvis 02/23/2020. HISTORY: Lymphoma CT DLP: 665.7 mGycm Automated exposure control for dose reduction was used. CONTRAST: CT scan of the chest, abdomen and pelvis is performed with Oral Contrast and with IV Contrast, patien t injected with 100 mL of Isovue 300. FINDINGS: LUNGS: Lungs are grossly clear. No concerning parenchymal mass or nodule identified. No pleural effus ion. No pneumothorax. The tracheobronchial tree is patent. MEDIASTINUM/SOFT TISSUES: No axillary, hilar, or mediastinal lymphadenopathy greater than 1 cm. Cardi ac size is normal. No pericardial effusion. No thoracic aortic aneurysm. LIVER: Normal. BILIARY SYSTEM: Status post cholecystectomy. No intrahepatic or extrahepatic biliary ductal dilatatio n. PANCREAS: Normal. SPLEEN: Not enlarged. No focal lesion. ADRENALS: Normal. KIDNEYS: No hydronephrosis or hydroureter. Exophytic simple right renal cyst off the lower pole. BOWEL: Large fecal debris within the rectal vault. No evidence of obstruction or thickening. PERITONEUM: No pneumoperitoneum. No free fluid. 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 LYMPH NODES: No lymphadenopathy. PELVIS: Normal. VASCULATURE: No abdominal aortic aneurysm. MUSCULOSKELETAL: No aggressive osseous destructive lesions. Degenerative changes of the spine. IMPRESSION: No evidence for recurrent lymphadenopathy. No metastatic disease of the chest, abdomen, or pelvis.
== END | disposition home or self-care (01) ==
LOC: RADCTMAIN 10:08
PROVIDERS: ATTEND Internal Medicine Hematology & Oncology
DX: C82.08 Follicular lymphoma grade I, lymph nodes of multiple sites (principal); Z88.0 Allergy status to penicillin; Z88.8 Allergy status to other drugs, medicaments and biological substances
CPT/HCPCS: 82565; 84520; 71260; 74177; 36415; Q9967

== ENCOUNTER → 2021-06-23 | Outpatient (CLI) | payer MEDICARE ==
--- NOTE | 2021-06-29 11:12 | MM ---
Reason for exam: screening (asymptomatic). Last mammogram was performed 2 years and 7 months ago. History: Patient is postmenopausal, has history of other cancer at age 71, and has history of high-risk lesion on a previous biopsy at age 66. Family history of breast cancer in maternal aunt. Benign MG stereo VAD BX LT of the left breast, August 13, 2016. Benign MG stereo VAD BX LT of the left breast, February 09, 2016. Left Breast Aspiration of the left breast, March 03, 2013. High risk right breast needle localzation of the right breast, February 11, 2012. High risk right mammotome panel of the right breast, January 28, 2012. Cyst aspiration of the right breast, December 19, 2000. Took progesterone for 5 years. Physical Findings: A clinical breast exam by your physician is recommended on an annual basis and results should be correlated with mammographic findings. MG 3D Screening Mammo W/Cad Bilateral CC and MLO view(s) were taken. Prior study comparison: November 19, 2018, bilateral MG 3d diag mammo w/cad ANEL. April 01, 2018, bilateral MG 3d screening mammo w/cad. The breast tissue is heterogeneously dense. This may lower the sensitivity of mammography. Previous mammotome biopsy in the left breast x 2. Scattered benign secretory and round calcifications. No significant changes when compared with prior studies. ASSESSMENT: Benign, BI-RAD 2 RECOMMENDATION: Routine screening mammogram of both breasts in 1 year.
== END | disposition home or self-care (01) ==
LOC: RADMAMWWP 14:11
PROVIDERS: ATTEND Internal Medicine Hematology & Oncology
DX: Z12.31 Encounter for screening mammogram for malignant neoplasm of breast (principal); Z78.0 Asymptomatic menopausal state; Z80.3 Family history of malignant neoplasm of breast
CPT/HCPCS: 77063; 77067

== ENCOUNTER → 2021-08-01 | Outpatient (CLI) | payer MEDICARE ==
--- NOTE | 2021-08-01 13:01 | XR ---
EXAMINATION TYPE: XR knee complete RT DATE OF EXAM: 08/01/2021 COMPARISON: 04/06/2019 HISTORY: Right knee pain and swelling TECHNIQUE: 4 view right knee FINDINGS: Tibial femoral components are present. No acute fractures are evident. A weightbearing imag es obtained. No significant change is evident. No joint effusion is evident. IMPRESSION: 1. No suspicious osseous abnormality right knee with a right knee prosthesis present.
== END | disposition home or self-care (01) ==
LOC: RADXRMAIN 11:55
PROVIDERS: ATTEND Family Medicine
DX: M25.561 Pain in right knee (principal); R22.41 Localized swelling, mass and lump, right lower limb; Z96.651 Presence of right artificial knee joint

== ENCOUNTER → 2021-08-22 | Outpatient (CLI) | payer MEDICARE ==
[2021-08-22 12:13] LABS: African American GFR (CKD) >90 (>60 ml/min/1.73 sqM); Blood Urea Nitrogen 9 mg/dL (7-17); Non-African American GFR(CKD) 81 (>60 ml/min/1.73 sqM)
--- NOTE | 2021-08-22 14:53 | CT ---
EXAMINATION TYPE: CT ChestAbdPelvis w con DATE OF EXAM: 08/22/2021 COMPARISON: Most recent CT April 15, 2020 and older CTs HISTORY: Non-Hodgkin lymphoma originally diagnosed 2017 CT DLP: 1621 mGycm. Automated Exposure Control for Dose Reduction was Utilized. CONTRAST: CT scan of the thorax, abdomen and pelvis is performed with oral and with IV Contrast, patient inject ed with 100 ml mL of Isovue 300. FINDINGS: LUNGS: There is stable mild bibasilar linear scarring and/or atelectasis. There is no suspicious new parenchymal nodule or mass. No pleural effusion or pneumothorax is seen. Tracheobronchial tree is pat ent. MEDIASTINUM: There are no greater than 1 cm hilar or mediastinal lymph nodes. No cardiomegaly or pe ricardial effusion is seen. Coronary artery calcification is redemonstrated. LIVER/GB: Cholecystectomy clips are redemonstrated. PANCREAS: Stable calcification posterior to the splenic vein SMV confluence axial image 57. No suspic ious adenopathy remains present at this level. SPLEEN: No significant abnormality is seen. ADRENALS: No significant abnormality is seen. KIDNEYS: Subcentimeter low dense lesion lower pole level left kidney series 7 image 45 is too small t o further characterize but stable and presumed benign. BOWEL: Oral contrast does not reach the hepatic flexure level. There is no suspicious small or large bowel dilatation. Normal-appearing appendix is redemonstrated from cecum. Some redundant sigmoid colo n redemonstrated. Scattered colonic diverticula greatest in left and sigmoid colon redemonstrated. GENITAL ORGANS: Remnant ovary is stable and normal in size.. LYMPH NODES: There is mild to moderate haziness or mesenteric fat stranding through the mid to lower abdomen extending to upper pelvis. Finding is greatest left retroperitoneum right bifurcation axial i mage 85 but unchanged from most recent CT Prominent but subcentimeter left groin lymph nodes axial image 116 unchanged from most recent CT. No new or enlarging greater than 1 cm lymph nodes clearly seen OSSEOUS STRUCTURES: Moderate to severe multilevel spurring throughout the thoracolumbar spine is pres ent. There is grade 1 retrolisthesis of L2 on L3 and L1 on L2 with severe disc space narrowing at the se levels. There is multilevel facet arthropathy in the lumbar spine. OTHER: No significant additional abnormality is seen. IMPRESSION: No new or enlarging adenopathy to suggest active neoplastic recurrence. Stable posttreat ment changes through the mid to lower abdomen and pelvic retroperitoneum which had prior left greater than right adenopathy on more remote studies.
== END | disposition home or self-care (01) ==
LOC: RADCTMAIN 11:23
PROVIDERS: ATTEND Internal Medicine Hematology & Oncology
DX: R59.0 Localized enlarged lymph nodes (principal); Z85.72 Personal history of non-Hodgkin lymphomas
CPT/HCPCS: 82565; 84520; 71260; 74177; 36415; Q9967

== ENCOUNTER → 2022-09-19 | Outpatient (CLI) | payer MEDICARE ==
--- NOTE | 2022-09-20 08:44 | MM ---
Reason for Exam: Screening (asymptomatic). Last mammogram was performed 1 year(s) and 3 month(s) ago. Patient History: Menarche at age 13. First Full-Term at age 25. Postmenopausal. Other cancer, age 71. Patient used Progesterone for 5 years. 08/13/2016, Benign Core Biopsy on the left side. 02/09/2016, Benign Core Biopsy on the left side. 03/03/2013, Cyst Aspiration on the Left side. 02/11/2012, High risk Excisional Biopsy on the right side. 01/28/2012, High risk Core Biopsy on the right side. 12/19/2000, Cyst Aspiration on the Right side. Maternal aunt had breast cancer. Risk Values: Jeannette 5 year model risk: 2.4%. NCI Lifetime model risk: 5.1%. Prior Study Comparison: 04/01/2018 Bilateral Screening Mammogram, [facility]. 11/19/2018 Bilateral Diagnostic Mammogram, [facility]. 06/23/2021 Bilateral Screening Mammogram, [facility]. Tissue Density: The breast tissue is heterogeneously dense. This may lower the sensitivity of mammography. Findings: Analyzed By CAD. There are some scattered benign-appearing round, linear, and dystrophic calcifications bilaterally redemonstrated. There are 2 biopsy clips in the left breast again seen. Benign-appearing left axillary lymph nodes redemonstrated. There is no suspicious group of microcalcifications or new suspicious mass in either breast. Overall Assessment: Benign, BI-RAD 2 Management: Screening Mammogram of both breasts in 1 year. A clinical breast exam by your physician is recommended on an annual basis and results should be correlated with mammographic findings. Electronically signed and approved by: George Mendoza M.D.
== END | disposition home or self-care (01) ==
LOC: RADMAMWWP 09:59
PROVIDERS: ATTEND Family Medicine
DX: Z12.31 Encounter for screening mammogram for malignant neoplasm of breast (principal); Z78.0 Asymptomatic menopausal state; Z80.3 Family history of malignant neoplasm of breast
CPT/HCPCS: 77063; 77067

== ENCOUNTER → 2022-09-20 | Outpatient (CLI) | payer MEDICARE ==
--- NOTE | 2022-09-20 10:26 | CT ---
EXAMINATION TYPE: CT ChestAbdPelvis w con CT DLP: 1648 mGycm, Automated exposure control for dose reduction was used. DATE OF EXAM: 09/20/2022 10:02 AM COMPARISON: CT chest abdomen pelvis 08/22/2021. CLINICAL INDICATION:Female, 76 years old with history of C82.08 lymphoma; [facility], Lymphoma Technique: Multiple axial images of the chest, abdomen, and pelvis were obtained following the intrav enous administration of 70 mL Isovue-300. Oral contrast was administered. Two-dimensional coronal and sagittal reconstructions were obtained. Findings: CHEST: LUNGS/ PLEURA: No pneumothorax, pleural effusion, focal consolidation. Stable mild bibasilar linear s carring and/or atelectasis. No suspicious pulmonary nodule or mass. AIRWAY: Patent and unremarkable.. HEART: Size within normal limits. No pericardial effusion. Coronary arterial calcifications. MEDIASTINUM: No greater than 1 cm hilar mediastinal lymph nodes. Mild increase in size of 0.7 cm shor t axis subcarinal lymph node. VASCULATURE: No aortic aneurysm. MUSCULOSKELETAL: No acute osseous abnormalities. Bilateral shoulder arthropathy. No aggressive osseou s lesions. SOFT TISSUES/LYMPH NODES: Unremarkable. LOWER NECK: No significant findings. ABDOMEN: ABDOMEN LIVER: Unremarkable GALLBLADDER AND BILE DUCTS: The gallbladder is surgically absent. No biliary duct dilatation. PANCREAS: Stable calcification posterior to the splenic vein at SMV confluence. No suspicious adenopa thy remains present at this level. No pancreatic ductal dilatation. SPLEEN: Unremarkable. ADRENAL GLANDS: Unremarkable. KIDNEYS AND URETERS: No hydronephrosis. Subcentimeter low-density lesion lower pole of left kidney is too small to characterize but stable and presumed benign. No renal calculi. The kidneys enhance symm etrically. PELVIS BLADDER: Unremarkable REPRODUCTIVE: Unremarkable. ABDOMEN & PELVIS STOMACH AND BOWEL: Small hiatal hernia, duodenum is unremarkable. Enteric contrast reaches the ascend ing colon. No evidence of bowel obstruction. Normal-appearing appendix. Redundant sigmoid colon redem onstrated. Scattered colonic diverticula without evidence of acute diverticulitis. PERITONEUM/RETROPERITONEUM: No evidence of pneumoperitoneum or free fluid. VASCULATURE: No evidence of aortic aneurysm. MUSCULOSKELETAL: No acute osseous abnormalities. No aggressive osseous lesions. Moderate to severe mu ltilevel degenerative disc disease. Mild retrolisthesis of L2 on L3 and L1 on L2. Multilevel facet ar thropathy. LYMPH NODES: Unchanged mild to moderate haziness or mesenteric fat stranding through the mid to lower abdomen extending to the upper pelvis. This is again most prominent along the left retroperitoneum r ight bifurcation is unchanged from prior examination. Stable nonenlarged bilateral inguinal lymph nod es. No new or enlarging greater than 1 cm lymph nodes demonstrated. SOFT TISSUE/ABDOMINAL WALL: Unremarkable IMPRESSION: Mild increase in size of 0.7 cm short axis subcarinal lymph node. Otherwise no other new or enlarging adenopathy. Attention on follow-up. Stable posttreatment changes to the mid to lower abdomen and pel hilario retroperitoneum.
== END | disposition home or self-care (01) ==
LOC: RADCTMAIN 07:49
PROVIDERS: ATTEND Internal Medicine Hematology & Oncology
DX: C82.08 Follicular lymphoma grade I, lymph nodes of multiple sites (principal); R59.0 Localized enlarged lymph nodes
CPT/HCPCS: 82565; 84520; 71260; 74177; 36415; Q9967

== ENCOUNTER → 2023-05-23 | Outpatient (CLI) | payer MEDICARE ==
--- NOTE | 2023-05-23 18:39 | XR ---
EXAMINATION TYPE: XR knee complete RT DATE OF EXAM: 05/23/2023 COMPARISON: 08/01/2021 HISTORY: 77-year-old female M2 5.561, right knee pain TECHNIQUE: 3 views FINDINGS: Images show right total knee arthroplasty. Both distal femoral and proximal tibial components of pros thesis are well seated without periprosthetic fracture. Small underlying knee joint effusion. Mild an terior infrapatellar soft tissue swelling. No acute fracture, subluxation, dislocation. IMPRESSION: Right total knee arthroplasty without acute osseous abnormality seen. Small knee joint effusion and m ild anterior infrapatellar soft tissue swelling.
== END | disposition home or self-care (01) ==
LOC: RADXRMAIN 12:15
PROVIDERS: ATTEND Family Medicine
DX: M25.461 Effusion, right knee (principal); Z96.651 Presence of right artificial knee joint

== ENCOUNTER → 2023-10-22 | Outpatient (CLI) | payer MEDICARE ==
--- NOTE | 2023-10-22 13:09 | MM ---
Reason for Exam: Screening (asymptomatic). Last mammogram was performed 1 year(s) and 1 month(s) ago. Patient History: Menarche at age 13. First Full-Term at age 25. Postmenopausal. Other cancer, age 71. Patient used Progesterone for 5 years. 08/13/2016, Benign Core Biopsy on the left side. 02/09/2016, Benign Core Biopsy on the left side. 03/03/2013, Cyst Aspiration on the Left side. 02/11/2012, High risk Excisional Biopsy on the right side. 01/28/2012, High risk Core Biopsy on the right side. 12/19/2000, Cyst Aspiration on the Right side. Maternal aunt had breast cancer. Risk Values: Jeannette 5 year model risk: 2.3%. NCI Lifetime model risk: 4.5%. Prior Study Comparison: 11/19/2018 Bilateral Diagnostic Mammogram, [facility]. 06/23/2021 Bilateral Screening Mammogram, [facility]. 09/19/2022 Bilateral MG 3D screening mammo w/cad, [facility]. Tissue Density: The breast tissue is heterogeneously dense. This may lower the sensitivity of mammography. Findings: Analyzed By CAD. Right breast: New round lymph nodes in the right axilla measuring 12 mm. No obvious mass visualized. There is possible skin thickening in the inferior breast. Left breast: There is no suspicious group of microcalcifications or new suspicious mass. Overall Assessment: Incomplete: need additional imaging evaluation, BI-RAD 0 Management: Diagnostic Breast Ultrasound of the right breast. Right whole breast ultrasound including the axilla for enlarged lymph node. [facility] will attempt to contact patient to return for supplemental views and ultrasound if indicated. Patient should continue monthly self-breast exams. A clinical breast exam by your physician is recommended on an annual basis. This exam should not preclude additional follow-up of suspicious palpable abnormalities. Note on Jeannette scores and lifetime risk: 1. A Jeannette score greater than 3% is considered moderate risk. If this is the case, consider specialist referral to assess eligibility for a risk reducing agent. 2. If overall lifetime risk for the development of breast cancer is 20% or higher, the patient may qualify for future screening with alternating mammogram and breast MRI. Electronically signed and approved by: Brenton Larsen DO
== END | disposition home or self-care (01) ==
LOC: RADMAMWWP 08:09
PROVIDERS: ATTEND Family Medicine
DX: Z12.31 Encounter for screening mammogram for malignant neoplasm of breast (principal); Z78.0 Asymptomatic menopausal state; Z80.3 Family history of malignant neoplasm of breast
CPT/HCPCS: 77063; 77067

== ENCOUNTER → 2023-10-29 | Outpatient (CLI) | payer MEDICARE ==
--- NOTE | 2023-10-29 14:32 | USB ---
Reason for Exam: Additional evaluation requested from abnormal screening. Patient History: Menarche at age 13. First Full-Term at age 25. Postmenopausal. Other cancer, age 71. Patient used Progesterone for 5 years. 08/13/2016, Benign Core Biopsy on the left side. 02/09/2016, Benign Core Biopsy on the left side. 03/03/2013, Cyst Aspiration on the Left side. 02/11/2012, High risk Excisional Biopsy on the right side. 01/28/2012, High risk Core Biopsy on the right side. 12/19/2000, Cyst Aspiration on the Right side. Maternal aunt had breast cancer. Risk Values: Jeannette 5 year model risk: 2.3%. NCI Lifetime model risk: 4.5%. Technique: Method: Whole Breast Handheld. Prior Study Comparison: 06/23/2021 Bilateral Screening Mammogram, [facility]. 09/19/2022 Bilateral MG 3D screening mammo w/cad, [facility]. 10/22/2023 Bilateral MG 3D screening mammo w/cad, [facility]. Findings: The whole breast of the right breast, the axilla of the right breast and the retroareolar of the right breast were scanned. No solid or cystic masses are identified within the breast. Multiple lymph nodes are within the right axilla with thickened cortex. This should be considered abnormal and additional workup with PET CT can be performed. Consider recurrent lymphoma within the differential...No solid or cystic masses are identified within the breast. Multiple lymph nodes are within the right axilla with thickened cortex. This should be considered abnormal and additional workup with PET CT can be performed. Consider recurrent lymphoma within the differential. At CT can be performed. Overall Assessment: Suspicious, BI-RAD 4 Management: Surgical Consultation of the right breast. A clinical breast exam by your physician is recommended on an annual basis and results should be correlated with mammographic findings. This exam should not preclude additional follow-up of suspicious palpable abnormalities. Results were given to the patient verbally at the time of exam. Electronically signed and approved by: Jose Granados D.O. Radiologis
== END | disposition home or self-care (01) ==
LOC: RADUSWWP 14:00
PROVIDERS: ATTEND Family Medicine
DX: R92.8 Other abnormal and inconclusive findings on diagnostic imaging of breast (principal); Z80.3 Family history of malignant neoplasm of breast; Z78.0 Asymptomatic menopausal state

== ENCOUNTER → 2023-11-21 | Outpatient (CLI) | payer MEDICARE ==
--- NOTE | 2023-11-25 17:33 | PE ---
EXAMINATION TYPE: PET CT fusion skull to thigh DATE OF EXAM: 11/21/2023 COMPARISON: Chest abdomen pelvis CT 09/20/2022 Prior PET/CT: None HISTORY: Lymphoma TECHNIQUE: Following the intravenous administration of 11.7 mCi of F-18 FDG, whole body images are p erformed from the skull base to the midthigh. Images are reviewed on the computer in the coronal, ax ial, and sagittal planes. Reconstructed rotating images are created on independent workstation and r eviewed on the computer. A localization and attenuation correction CT is performed in conjunction w ith the PET scan. DLP: 653.28 mGycm SCAN: Initial Blood glucose: 85 mg/dL Average Mediastinum SUV: 1.95 Average Liver SUV: 2.86 FINDINGS: NECK: There is mild uptake within the left jugulodigastric region, image 43, SUV 6.51 some additiona l more left peripheral uptake is present, SUV 4.9, image 43. There is marked uptake within the right submandibular region, SUV 10.49 image 50. There is a focus of radiotracer in the left neck, image 53, SUV 8.56. Some additional punctate mild uptake is present bi laterally could be additional lymphadenopathy. THORAX: Within the supraclavicular region there is uptake, image 67, on the right with an SUV of 3.97 . Nearby uptake on the right has an SUV of 5.28 near the trachea. Some uptake is in the left supracla vicular region image 60 SUV 4.69. Multiple small lymph nodes are within the right axillary region, th e largest on image 80 has an SUV of 7.87. There is uptake within the left axillary region, example im age 83, SUV 5.65. There is uptake within the mediastinum and aortopulmonic window. Example image 85, SUV 5.19 the paratracheal region uptake is within the subcarinal region with an SUV of 5.42. Right hi lar uptake is present. There is a focus of uptake within a more inferior right axillary lymph node, i mage 93 SUV 4.36. Right infrahilar uptake is present, posterior medially on image 101 with an SUV of 6.66, more inferior on the lateral right hilum image 101 SUV 4.64 ABDOMEN: PELVIS: Some uptake may be in the right iliac region with an SUV 6.54, image 189. There is some right femoral uptake, image 2:15, SUV 9.04 there is uptake within the regions bilaterally, example image 2 19 on the left SUV 3.17 and on the right SUV 3.17 OSSEOUS STRUCTURES: No abnormal uptake LOCALIZATION CT: Scattered lymphadenopathy corresponding to abnormal uptake regions. COMPARISON: None IMPRESSION: 1. Scattered areas of uptake within multiple lymph node chains including bilateral inguinal regions, right femoral region near the inguinal canal, right iliac region into the common iliac artery. Multip le areas of abnormal uptake are within the bilateral axillary regions, mediastinum, and right hilar r egion. Abnormal uptake is 2 scattered small lymph nodes within the left and right neck.
== END | disposition home or self-care (01) ==
LOC: RADPETMAIN 12:42
PROVIDERS: ATTEND Internal Medicine Hematology & Oncology
DX: C82.08 Follicular lymphoma grade I, lymph nodes of multiple sites (principal)
CPT/HCPCS: 78815; A9552

== ENCOUNTER 2023-12-24 08:39 | Day surgery (SDC) | payer MEDICARE ==
[2023-12-24 09:33] VITALS: RESP 16; TEMP 98
[2023-12-24 11:14] VITALS: BP 130/86; PULSE 76
--- NOTE | 2023-12-24 12:31 | US ---
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 Cleveland TECHNIQUE: Ultrasound guided percutaneous biopsy of right submandibular space lymph node using coaxial method. T he patient was monitored by a qualified trained nurse independent of the Radiologist during sedation. FINDINGS: The procedure was explained to the patient. All questions were answered and informed consent was obta ined. The patient was placed supine and transverse ultrasound images of the enlarged lymph node measuring 1 .9 x 0.8 cm inferior to the right body of the mandible were obtained. The overlying skin was marked and prepped using sterile method. Timeout was taken per protocol. Follo wing administration 1% local lidocaine anesthesia, an 18-gauge, 6 cm Bard biopsy system was advanced with needle tip visualized within the enlarged lymph node. A single 18-gauge biopsy core was placed in formalin and two 18-gauge cores were placed on the Telfa pad with saline and sent to pathology. The needle was removed. Additional ultrasound scanning shows no abnormal fluid collection or evident complication. Hemostasis was obtained and a dressing was placed. Patient was taken for postprocedure observation in stable condition. IMPRESSIONS: Status post ultrasound guided core biopsy right submandibular space lymph node. Pathology results sara hall
== END 2023-12-24 11:00 | disposition home or self-care (01) ==
LOC: RADPROMAIN 08:39
PROVIDERS: ATTEND Internal Medicine Hematology & Oncology
DX: C82.08 Follicular lymphoma grade I, lymph nodes of multiple sites (principal)
CPT/HCPCS: 38505; 76942; 88305; 88341; 88342

== ENCOUNTER → 2024-03-02 | Outpatient (CLI) | payer MEDICARE ==
[2024-03-02 14:01] LABS: African American GFR (CKD) 68 (>60 ml/min/1.73 sqM); Blood Urea Nitrogen 20 mg/dL (7-17); Non-African American GFR(CKD) 59 (>60 ml/min/1.73 sqM)
--- NOTE | 2024-03-02 15:44 | CT ---
EXAMINATION TYPE: CT soft tissue neck w con DATE OF EXAM: 03/02/2024 COMPARISON: PET/CT dated 11/21/2023 HISTORY: f/u lymphoma CT DLP: 381.2 mGycm CONTRAST: CT scan of the neck is performed with IV Contrast, patient injected with 100 mL of Isovue 300. Contrast enhanced CT of the neck was performed from the skull base through the lung apices. AIRWAY: The supraglottic, glottic, and subglottic portions of the airway appear patent and free of mass. SALIVARY GLANDS: The submandibular and parotid glands are free of mass or inflammatory process. THYROID GLAND: No nodules or masses seen. LYMPH NODES: Enlarged lymph node adjacent to the right submandibular gland measuring 1.3 cm short axi s. Several adjacent subcentimeter lymph nodes noted as well. Anterior internal jugular chain lymph no de measuring 1.0 cm short axis on the left. Subcentimeter lymph nodes seen about the left submandibul ar gland. There are couple subcentimeter submental lymph nodes are identified as well. Subcentimeter internal jugular chain lymph nodes present. LUNG APICES: No nodule or mass is seen. OTHER: Vascular structures are patent. No significant degenerative change of the cervical spine. N o abscess seen. IMPRESSION: Enlarged lymph node adjacent to the right submandibular gland measuring 1.3 cm short axis. Anterior i nternal jugular chain lymph node measuring 1.0 cm short axis on the left. Additional subcentimeter ly mph nodes as discussed bilaterally.
--- NOTE | 2024-03-02 16:02 | CT ---
EXAMINATION TYPE: CT ChestAbdPelvis w con DATE OF EXAM: 03/02/2024 COMPARISON: 09/20/2022 HISTORY: f/u lymphoma CT DLP: 1440.8 mGycm CONTRAST: CT scan of the chest, abdomen and pelvis is performed with Oral Contrast and with IV Contrast, patien t injected with 100 mL of Isovue 300. CT Chest: LUNGS: Small fixed HH. The lungs are clear and free of infiltrate or atelectasis. No pulmonary nodu le or mass is detected. No pleural effusion or CT evidence of interstitial lung disease. MEDIASTINUM: Thoracic aorta is of normal caliber. The heart is not enlarged. There is subcarinal ad enopathy which is also appeared in the interval measuring 2.1 x 1.7 cm. There is also azygo esophagea l adenopathy measuring 3.0 x 1.7 cm. HILAR STRUCTURES: No evidence for mass. No hilar adenopathy is appreciated. OTHER: New right axillary adenopathy with enlarged lymph nodes identified measuring 1.5 a 1.3 cm resp ectively. Additional 1 cm lymph nodes are seen in the right axilla. Left axillary lymph node measures 1.8 and 1.[address] ABDOMEN AND PELVIS FINDINGS: LIVER/GB: The gallbladder is surgically absent. Mild hepatic steatosis. No space occupying hepatic le camilla. Biliary tree is of normal caliber. PANCREAS: No inflammation. No distinct mass. SPLEEN: No splenic enlargement. No lesion seen. ADRENALS: No nodule. No thickening. KIDNEYS/BLADDER: No hydronephrosis. No nephrolithiasis. Small simple cyst lower pole left kidney. BOWEL: Normal appendix. Normal bowel caliber. No inflammation. GENITAL ORGANS: No gross abnormality. LYMPH NODES: Enlarged lymph node right iliac chain measuring 2.5 cm seen on image 92. No definite lef t iliac chain adenopathy appreciated. Aorto intracaval lymph node measuring approximately 1.1 cm. Lef t para-aortic adenopathy measuring 1.6 cm short axis. AORTA: No significant abnormality. OSSEOUS STRUCTURES: No significant abnormality is seen. OTHER: No significant additional abnormality is seen. IMPRESSION: 1. New areas of adenopathy as discussed above. 2. Fatty liver.
== END | disposition home or self-care (01) ==
LOC: RADCTMAIN 13:19
PROVIDERS: ATTEND Internal Medicine Hematology & Oncology
DX: C82.08 Follicular lymphoma grade I, lymph nodes of multiple sites (principal); R59.9 Enlarged lymph nodes, unspecified; K76.0 Fatty (change of) liver, not elsewhere classified; D51.9 Vitamin B12 deficiency anemia, unspecified; I10 Essential (primary) hypertension; M51.9 Unspecified thoracic, thoracolumbar and lumbosacral intervertebral disc disorder; Z71.3 Dietary counseling and surveillance
CPT/HCPCS: 82565; 84520; 70491; 71260; 74177; 36415; Q9967

== ENCOUNTER → 2024-07-06 | Outpatient (CLI) | payer MEDICARE ==
--- NOTE | 2024-07-30 13:44 | CT ---
EXAMINATION TYPE: CT ChestAbdPelvis w con CT DLP: 1780 mGycm, Automated exposure control for dose reduction was used. DATE OF EXAM: 07/06/2024 COMPARISON: THIS EXAM WAS READ DURING PACS DOWNTIME, NO PRIORS AVAILABLE. CLINICAL INDICATION: C82.08 Follicular lymphoma grade 1, lymph nodes of multiple sites I10 Essential Hypertension D51.9 Anemia M51.9 DDD LSpine Technique: CT ChestAbdPelvis w con; Multiple axial images were obtained. Two-dimensional coronal and sagittal reconstructions were obtained. Contrast used: 100 cc of Isovue 300 Oral contrast used: Oral contrast utilized Findings: CHEST: LUNGS/ PLEURA: No focal consolidation, pneumothorax or pleural effusion. AIRWAY: Patent and unremarkable. HEART: Size within normal limits. MEDIASTINUM: No gross evidence of adenopathy. VASCULATURE: No aortic aneurysm. MUSCULOSKELETAL: No acute osseous abnormalities. SOFT TISSUES/LYMPH NODES: Unremarkable. LOWER NECK: No significant findings. ABDOMEN: ABDOMEN LIVER: Unremarkable GALLBLADDER AND BILE DUCTS: Gallbladder surgically absent. PANCREAS: Unremarkable. SPLEEN: Unremarkable. ADRENAL GLANDS: Unremarkable. KIDNEYS AND URETERS: No evidence of hydronephrosis or renal calculus. The ureters are unremarkable. PELVIS BLADDER: Unremarkable REPRODUCTIVE: Unremarkable. ABDOMEN & PELVIS STOMACH AND BOWEL: No evidence of bowel obstruction. PERITONEUM: No evidence of pneumoperitoneum or free fluid. VASCULATURE: No evidence of aortic aneurysm. MUSCULOSKELETAL: No acute osseous abnormalities LYMPH NODES: No gross evidence for lymphadenopathy. SOFT TISSUE/ABDOMINAL WALL: Unremarkable IMPRESSION: Limited exam without priors. 1. No lymphadenopathy identified, specifically no greater than 1.0 cm short axis lymph nodes. 2. No evidence for acute thoracic or abdominal process. 3. Mild cardiomegaly. 4. Colonic diverticulosis. Special attention to the right iliac chain illustrates no enlarged lymph nodes. Right Ovary is ante rior to the right iliac artery. Lymph node present measuring up to 9 mm in short axis on the right co mmon iliac artery chain. Left periaortic region does not demonstrate any enlarged lymph nodes. Bilateral axillae are without evidence for enlarged lymph nodes.
== END | disposition home or self-care (01) ==
LOC: RADCTMAIN 11:47
PROVIDERS: ATTEND Internal Medicine Hematology & Oncology
DX: C82.08 Follicular lymphoma grade I, lymph nodes of multiple sites (principal); I10 Essential (primary) hypertension; D51.9 Vitamin B12 deficiency anemia, unspecified; M51.9 Unspecified thoracic, thoracolumbar and lumbosacral intervertebral disc disorder; K57.30 Diverticulosis of large intestine without perforation or abscess without bleeding; I51.7 Cardiomegaly
CPT/HCPCS: 82565; 84520; 71260; 74177; 36415; Q9967

== ENCOUNTER → 2025-06-08 | Outpatient (CLI) | payer MEDICARE ==
--- NOTE | 2025-06-08 09:02 | MM ---
Reason for Exam: Screening (asymptomatic). Last mammogram was performed 1 year(s) and 8 month(s) ago. Patient History: Menarche at age 13. First Full-Term at age 25. Postmenopausal. Other cancer, age 71. Patient used Progesterone for 5 years. 08/13/2016, Benign Core Biopsy on the left side. 02/09/2016, Benign Core Biopsy on the left side. 03/03/2013, Cyst Aspiration on the Left side. 02/11/2012, High risk Excisional Biopsy on the right side. 01/28/2012, High risk Core Biopsy on the right side. 12/19/2000, Cyst Aspiration on the Right side. Maternal aunt had breast cancer. Risk Values: Jeannette 5 year model risk: 2.3%. NCI Lifetime model risk: 4.1%. Prior Study Comparison: 06/23/2021 Bilateral Screening Mammogram, [facility]. 09/19/2022 Bilateral MG 3D screening mammo w/cad, [facility]. 10/22/2023 Bilateral MG 3D screening mammo w/cad, [facility]. Tissue Density: The breasts are heterogeneously dense, which may obscure small masses. Findings: Analyzed By CAD. Biopsy clips in the left breast are redemonstrated. There are scattered small benign-appearing round calcifications bilaterally redemonstrated. There are benign-appearing linear calcifications in the left breast again seen. There is no suspicious group of microcalcifications or new suspicious mass in either breast. Overall Assessment: Benign, BI-RAD 2 Management: Screening Mammogram of both breasts in 1 year. . Patient should continue monthly self-breast exams. A clinical breast exam by your physician is recommended on an annual basis. This exam should not preclude additional follow-up of suspicious palpable abnormalities. Note on Jenanette scores and lifetime risk: 1. A Jeannette score greater than 3% is considered moderate risk. If this is the case, consider specialist referral to assess eligibility for a risk reducing agent. 2. If overall lifetime risk for the development of breast cancer is 20% or higher, the patient may qualify for future screening with alternating mammogram and breast MRI. [facility], , 06/08/2025 8:59 AM. Electronically signed and approved by: George Mendoza M.D.
== END | disposition home or self-care (01) ==
LOC: RADMAMWWP 08:26
PROVIDERS: ATTEND Family Medicine
DX: Z12.31 Encounter for screening mammogram for malignant neoplasm of breast (principal); R92.333 Mammographic heterogeneous density, bilateral breasts; Z78.0 Asymptomatic menopausal state; Z80.3 Family history of malignant neoplasm of breast
CPT/HCPCS: 77063; 77067